=== PATIENT | male | born 1990 ===

== ENCOUNTER 2022-12-19 11:33 | Emergency (ER) | payer MEDICAID ==
[~2022-12-19] VITALS: Ht 188 cm; Wt 91.0 kg
[2022-12-19 16:45] VITALS: BP 132/82
[2022-12-19] MEDS ORDERED: TETANUS, DIPHTHERIA, PERTUSSIS VAC/PF 0.5ML (>10YR OLD) IM ONE ×2 (16:45→17:00)
[2022-12-19] MEDS ORDERED: IBUPROFEN 600MG TABLET PO ONE (16:45)
[2022-12-19] MEDS ORDERED: IBUP-2029 MT (18:56)
[2022-12-19] MEDS ORDERED: DOXY100C5 MT (18:56)
== END 2022-12-19 19:30 | disposition home or self-care (01) ==
LOC: ER 11:33
DX: S61.012A Laceration without foreign body of left thumb without damage to nail, initial encounter (principal); W45.0XXA Nail entering through skin, initial encounter; Y93.67 Activity, basketball; Y92.89 Other specified places as the place of occurrence of the external cause; Y99.8 Other external cause status
CPT/HCPCS: 12001; 90471; 90715; 99283